=== PATIENT | male | born 1930 | race Caucasian/White ===

== ENCOUNTER 2016-04-04 18:01 | Inpatient (IN) | payer MEDICARE, MEDICAID ==
[~2016-04-04] VITALS: Ht 167.6 cm; Wt 67.4 kg
[~2016-04-04 18:01] MED LIST: ASPI81TA2 PO; ATOR20TA86 PO; DOCU250C91 PO; FURO40 PO; INSNOV SQ; IPRA4AER IH; MIDO5 PO; PANT40TA25 PO; POTA10TA10 PO; SITA50 PO; TAMS0.4C32 PO
[2016-04-04] MEDS ORDERED: FINA5TAB41 PO (18:35)
[2016-04-04] MEDS ORDERED: FURO20 PO (18:35)
[2016-04-04] MEDS ORDERED: CLOP75 PO (18:35)
[2016-04-04] MEDS ORDERED: BICA50TA3 PO (18:35)
[2016-04-04 19:13] LABS: BASOPHILS # (AUTO) 0.03 K/uL (0.00-0.20); BASOPHILS % (AUTO) 0.3 % (0.0-2.0); EOSINOPHILS # (AUTO) 0.04 K/uL (0.00-0.70); EOSINOPHILS % (AUTO) 0.41 % (1.0-6.0); HEMATOCRIT 32.5 % (41-53); HEMOGLOBIN 10.4 g/dL (13.5-17.5); LYMPHOCYTES # (AUTO) 0.8 K/uL (1.0-4.8); LYMPHOCYTES % (AUTO) 8.2 % (22.0-44.0); MEAN CORPUSCULAR HEMOGLOBIN 23.1 pg (26.0-34.0); MEAN CORPUSCULAR HGB CONC 32.1 G/dL (31.0-37.0); MEAN CORPUSCULAR VOLUME 72 fL (80-100); MONOCYTES # (AUTO) 1.2 K/uL (0.1-1.0); NEUTROPHILS % (AUTO) 79.1 % (40.0-70.0); PLATELET COUNT (AUTO) 345 K/uL (150-450); RED BLOOD CELL COUNT(AUTO) 4.52 MIL/uL (4.50-5.90); RED CELL DISTRIBUTION WIDTH 19.1 % (11.5-14.5); WHITE BLOOD COUNT (AUTO) 10.2 K/uL (4.5-11.0)
[2016-04-04 19:26] LABS: ANION GAP 6 mmol/L (8-16); CALCIUM, TOTAL 8.3 mg/dL (8.8-10.5); CARBON DIOXIDE 26 mmol/L (22-29); CHLORIDE 100 mmol/L (98-107); CREATININE 1.24 mg/dL (0.60-1.30); GLOMERULAR FILTR. RATE CALC 55 mL/min (>60); POTASSIUM 3.4 mmol/L (3.5-5.1); SODIUM SERUM 132 mmol/L (136-145); UREA NITROGEN, BLOOD 26 mg/dL (7-18)
[2016-04-04 19:34] LABS: B-TYPE NATRIURETIC PEPTIDE 130 pg/mL (0-100)
[2016-04-04 19:37] LABS: ALANINE AMINOTRANSFERASE 10 U/L (12-78); ALBUMIN 2.6 g/dL (3.4-5.0); ASPARTATE AMINOTRANSFERASE 12 U/L (15-37); BILIRUBIN,TOTAL 0.2 mg/dL (0.1-1.0)
[2016-04-04 19:51] LABS: LACTIC ACID 2.3 mmol/L (0.4-2.0)
[2016-04-04] MEDS ORDERED: 0.9% SODIUM CHLORIDE 10 ML SYRINGE IVP PRN (20:00)
[2016-04-04] MEDS ORDERED: ACETAMINOPHEN 325 MG TABLET PO PRN ×2 (20:00→22:00)
[2016-04-04] MEDS ORDERED: AZITHROMYCIN 500 MG/NS 250 ML IV ONE (20:00)
[2016-04-04] MEDS ORDERED: CefTRIAXone 1 GM/DEXTROSE 50 ML IV ONE (20:00)
[2016-04-04 20:07] LABS: GLUCOSE,POINT OF CARE 62 MG/DL (70-110)
[2016-04-04] MEDS ORDERED: SODIUM CHLORIDE 0.9% 1,000 ML IV ONE (20:30)
[2016-04-04 21:08] LABS: REFLEX LACTIC ACID? YES YES
[2016-04-04] MEDS ORDERED: ALBUTEROL SULFATE 2.5 MG/0.5 ML NEB SOLUTION NEB PRN (22:00)
[2016-04-04] MEDS ORDERED: POTASSIUM CHL 10 MEQ/WATER 50 ML IV PRN (22:00)
[2016-04-04] MEDS ORDERED: DEXTROSE 50%-WATER 25 GM/50 ML SYRINGE IVP PRN (22:00)
[2016-04-04] MEDS ORDERED: MAGNESIUM HYDROXIDE SUSPENSION 30 ML UDCUP PO PRN (22:00)
[2016-04-04] MEDS ORDERED: POTASSIUM CHLORIDE 20 MEQ ER TABLET PO PRN (22:00)
[2016-04-04 22:41] LABS: RBC MORPHOLOGY COMMENT ABNORMAL RBC MORPH
[2016-04-04] MEDS: SIMVASTATIN 20 MG TABLET PO SCH (23:23)
[2016-04-04] MEDS: ASPIRIN 81 MG CHEWABLE TABLET PO SCH (23:23)
[2016-04-04] MEDS: HEPARIN SODIUM,PORCINE 5,000 UNITS/ML VIAL SQ SCH (23:23)
[2016-04-04 23:41] VITALS: BP 106/50
[2016-04-05 04:59] VITALS: BP 110/58
[2016-04-05 06:26] LABS: BASOPHILS % (AUTO) 0.9 % (0.0-2.0); EOSINOPHILS % (AUTO) 2.7 % (1.0-6.0); HEMATOCRIT 29.9 % (41-53); HEMOGLOBIN 9.6 g/dL (13.5-17.5); LYMPHOCYTES # (AUTO) 0.8 K/uL (1.0-4.8); LYMPHOCYTES % (AUTO) 10.3 % (22.0-44.0); MEAN CORPUSCULAR HEMOGLOBIN 23.4 pg (26.0-34.0); MEAN CORPUSCULAR HGB CONC 32.2 G/dL (31.0-37.0); MEAN CORPUSCULAR VOLUME 73 fL (80-100); MONOCYTES # (AUTO) 0.9 K/uL (0.1-1.0); MONOCYTES % (AUTO) 11.3 % (2.0-9.0); NEUTROPHILS % (AUTO) 74.8 % (40.0-70.0); PLATELET COUNT (AUTO) 260 K/uL (150-450); RED BLOOD CELL COUNT(AUTO) 4.12 MIL/uL (4.50-5.90); RED CELL DISTRIBUTION WIDTH 18.5 % (11.5-14.5)
[2016-04-05 06:38] LABS: RBC MORPHOLOGY COMMENT ABNORMAL RBC MORPH
[2016-04-05 06:54] LABS: ANION GAP 6 mmol/L (8-16); CALCIUM, TOTAL 8.1 mg/dL (8.8-10.5); CARBON DIOXIDE 29 mmol/L (22-29); CHLORIDE 107 mmol/L (98-107); CREATININE 0.97 mg/dL (0.60-1.30); GLOMERULAR FILTR. RATE CALC > 60 mL/min (>60); POTASSIUM 3.8 mmol/L (3.5-5.1); SODIUM SERUM 142 mmol/L (136-145); UREA NITROGEN, BLOOD 19 mg/dL (7-18)
[2016-04-05 07:35] VITALS: BP 114/49
[2016-04-05] MEDS: FUROSEMIDE 20 MG/2 ML VIAL IVP SCH (10:07)
[2016-04-05] MEDS: HEPARIN SODIUM,PORCINE 5,000 UNITS/ML VIAL SQ SCH ×3 (10:07→23:57)
[2016-04-05] MEDS: PANTOPRAZOLE SODIUM 40 MG DR TABLET PO SCH (10:08)
[2016-04-05] MEDS: DOCUSATE SODIUM 100 MG CAPSULE PO SCH ×2 (10:08→20:54)
[2016-04-05 12:05] VITALS: BP 105/61
[2016-04-05] MEDS: INSULIN ASPART 100 UNITS/ML SQ PRN ×3 (12:17→20:57)
[2016-04-05 15:51] VITALS: BP 118/46
[2016-04-05 19:56] VITALS: BP 105/78
[2016-04-05 19:56] LABS: GLUCOSE COMMENT 1 Received Meds; GLUCOSE,POINT OF CARE 161 MG/DL (70-110)
[2016-04-05] MEDS ORDERED: AZITHROMYCIN 500 MG/NS 250 ML IV SCH (20:00)
[2016-04-05] MEDS ORDERED: SODIUM CHLORIDE 0.9% 250 ML IV ONE (20:51)
[2016-04-05] MEDS: SIMVASTATIN 20 MG TABLET PO SCH (20:54)
[2016-04-05] MEDS: ASPIRIN 81 MG CHEWABLE TABLET PO SCH (20:54)
[2016-04-06 00:14] VITALS: BP 108/59
[2016-04-06 03:57] VITALS: BP 104/58
[2016-04-06 07:06] LABS: GLUCOSE COMMENT 1 Received Meds; GLUCOSE,POINT OF CARE 244 MG/DL (70-110)
[2016-04-06 07:06] LABS: GLUCOSE COMMENT 1 Received Meds; GLUCOSE,POINT OF CARE 110 MG/DL (70-110)
[2016-04-06 07:06] LABS: GLUCOSE,POINT OF CARE 159 MG/DL (70-110)
[2016-04-06 07:11] LABS: GLUCOSE,POINT OF CARE 133 MG/DL (70-110)
[2016-04-06 07:30] VITALS: BP 103/46
[2016-04-06] MEDS: FUROSEMIDE 20 MG/2 ML VIAL IVP SCH (08:00)
[2016-04-06] MEDS: HEPARIN SODIUM,PORCINE 5,000 UNITS/ML VIAL SQ SCH (09:42)
[2016-04-06] MEDS: PANTOPRAZOLE SODIUM 40 MG DR TABLET PO SCH (09:42)
[2016-04-06] MEDS: DOCUSATE SODIUM 100 MG CAPSULE PO SCH (09:42)
[2016-04-06 10:46] VITALS: BP 113/50
[2016-04-06 11:39] VITALS: BP 96/44
[2016-04-06] MEDS: INSULIN ASPART 100 UNITS/ML SQ PRN (12:44)
[2016-04-06 15:46] VITALS: BP 125/62
[2016-04-18 12:27] LABS: GLUCOSE COMMENT 1 Received Meds; GLUCOSE,POINT OF CARE 197 MG/DL (70-110)
== END 2016-04-06 17:50 | disposition home or self-care (01) | DRG 194 ==
LOC: EMS 18:05 → 5N 20:16
PROVIDERS: ADMIT Internal Medicine; ATTEND Internal Medicine
DX: J18.9 Pneumonia, unspecified organism (principal); G45.9 Transient cerebral ischemic attack, unspecified; E44.0 Moderate protein-calorie malnutrition; I50.30 Unspecified diastolic (congestive) heart failure; Z66 Do not resuscitate; E11.9 Type 2 diabetes mellitus without complications; E87.6 Hypokalemia; E78.5 Hyperlipidemia, unspecified; N40.0 Benign prostatic hyperplasia without lower urinary tract symptoms; I11.0 Hypertensive heart disease with heart failure; I25.10 Atherosclerotic heart disease of native coronary artery without angina pectoris; M19.90 Unspecified osteoarthritis, unspecified site; I69.30 Unspecified sequelae of cerebral infarction; Z79.01 Long term (current) use of anticoagulants; Z79.02 Long term (current) use of antithrombotics/antiplatelets; Z79.4 Long term (current) use of insulin; Z79.82 Long term (current) use of aspirin; Z89.411 Acquired absence of right great toe; Z95.1 Presence of aortocoronary bypass graft; Z68.24 Body mass index [BMI] 24.0-24.9, adult; Z83.3 Family history of diabetes mellitus; Z82.49 Family history of ischemic heart disease and other diseases of the circulatory system; J40 Bronchitis, not specified as acute or chronic
CPT/HCPCS: 70450; 82962; 83605; 87040; 93005; 96365; 96367; 97116; 97162; 97530; 99285; J0456; J1644; J1940; J7050

== ENCOUNTER 2016-04-07 17:42 | Inpatient (IN) | payer MEDICARE, MEDICAID ==
[~2016-04-07] VITALS: Ht 170.2 cm; Wt 67.5 kg
[~2016-04-07 17:42] MED LIST changes: +BICA50TA3 PO; +CLOP75 PO; +FINA5TAB41 PO; +FURO20 PO; -FURO40 PO
[2016-04-07 18:56] LABS: BASOPHILS % (AUTO) 0.7 % (0.0-2.0); EOSINOPHILS % (AUTO) 0 % (1.0-6.0); HEMATOCRIT 31.5 % (41-53); HEMOGLOBIN 10.2 g/dL (13.5-17.5); LYMPHOCYTES # (AUTO) 0.6 K/uL (1.0-4.8); LYMPHOCYTES % (AUTO) 5.1 % (22.0-44.0); MEAN CORPUSCULAR HEMOGLOBIN 23.4 pg (26.0-34.0); MEAN CORPUSCULAR HGB CONC 32.5 G/dL (31.0-37.0); MEAN CORPUSCULAR VOLUME 72 fL (80-100); MONOCYTES # (AUTO) 1.1 K/uL (0.1-1.0); MONOCYTES % (AUTO) 9.3 % (2.0-9.0); NEUTROPHILS # (AUTO) 9.6 K/uL (1.8-7.7); NEUTROPHILS % (AUTO) 84.9 % (40.0-70.0); PLATELET COUNT (AUTO) 297 K/uL (150-450); RED BLOOD CELL COUNT(AUTO) 4.37 MIL/uL (4.50-5.90); RED CELL DISTRIBUTION WIDTH 18.1 % (11.5-14.5); WHITE BLOOD COUNT (AUTO) 11.4 K/uL (4.5-11.0)
[2016-04-07 19:08] LABS: INR 1.1 (0.9-1.1); PROTHROMBIN TIME 11.7 SEC (9.4-11.6)
[2016-04-07 19:17] LABS: ANION GAP 9 mmol/L (8-16); CALCIUM, TOTAL 8.2 mg/dL (8.8-10.5); CARBON DIOXIDE 27 mmol/L (22-29); CHLORIDE 99 mmol/L (98-107); CREATININE 1.28 mg/dL (0.60-1.30); GLOMERULAR FILTR. RATE CALC 53 mL/min (>60); POTASSIUM 3.8 mmol/L (3.5-5.1); SODIUM SERUM 135 mmol/L (136-145); UREA NITROGEN, BLOOD 29 mg/dL (7-18)
[2016-04-07 19:20] LABS: RBC MORPHOLOGY COMMENT ABNORMAL RBC MORPH
[2016-04-07 19:23] LABS: B-TYPE NATRIURETIC PEPTIDE 226 pg/mL (0-100)
[2016-04-07] MEDS ORDERED: 0.9% SODIUM CHLORIDE 5 ML NEB SOLUTION NEB ONE ×2 (19:41→19:42)
[2016-04-07 19:44] LABS: ALANINE AMINOTRANSFERASE 13 U/L (12-78); ALBUMIN 2.5 g/dL (3.4-5.0); ASPARTATE AMINOTRANSFERASE 23 U/L (15-37); BILIRUBIN,TOTAL 0.2 mg/dL (0.1-1.0); CREATINE KINASE MB 0.8 ng/mL (0-5); CREATINE KINASE, TOTAL 173 U/L (39-308)
[2016-04-07] MEDS ORDERED: IPRATROPIUM BROMIDE 0.5 MG/2.5 ML NEB SOLUTION NEB ONE (19:45)
[2016-04-07] MEDS ORDERED: ALBUTEROL SULFATE 5 MG/ML 20 ML NEB SOLN [BULK] NEB ONE (19:45)
[2016-04-07] MEDS ORDERED: ACETAMINOPHEN 325 MG TABLET PO ONE (19:45)
[2016-04-07 22:20] LABS: INFLUENZA TYPE B NEGATIVE FOR TYPE B (NEGATIVE)
[2016-04-07] MEDS ORDERED: ONDANSETRON HCL 4 MG/2 ML VIAL IVP PRN (23:15)
[2016-04-07] MEDS ORDERED: ACETAMINOPHEN 325 MG TABLET PO PRN (23:15)
[2016-04-07] MEDS ORDERED: 0.9% SODIUM CHLORIDE 10 ML SYRINGE IVP PRN (23:15)
[2016-04-07 23:44] VITALS: BP 138/47
[2016-04-08 03:27] LABS: GLUCOSE COMMENT 1 Doctor Notified; GLUCOSE,POINT OF CARE 299 MG/DL (70-110)
[2016-04-08 04:00] VITALS: BP 99/57
[2016-04-08] MEDS ORDERED: ALBUTEROL SULFATE 2.5 MG/0.5 ML NEB SOLUTION NEB PRN (06:00)
[2016-04-08] MEDS ORDERED: DEXTROSE 50%-WATER 25 GM/50 ML SYRINGE IVP PRN (06:00)
[2016-04-08] MEDS ORDERED: ALBUTEROL SULFATE/IPRATROPIUM 100-20 MCG/SPRAY 4 GM INHALER IH SCH (06:00)
[2016-04-08] MEDS ORDERED: IPRATROPIUM BROMIDE 0.5 MG/2.5 ML NEB SOLUTION NEB PRN (06:00)
[2016-04-08] MEDS: INSULIN ASPART 100 UNITS/ML SQ PRN ×4 (06:20→22:14)
[2016-04-08] MEDS ORDERED: MethylPREDNISolone SOD SUCC 125 MG/2 ML VIAL IVP SCH (08:00)
[2016-04-08 08:07] LABS: APPEARANCE,URINE TURBID (CLEAR); GLUCOSE, URINE (UA) 500 mg/dL (NEGATIVE); KETONES,URINE NEGATIVE (NEGATIVE); LEUKOCYTE ESTERASE ,URINE LARGE (NEGATIVE); OCCULT BLOOD,URINE LARGE (NEGATIVE); PH,URINE 5.5 (5.0-8.0); PROTEIN,URINE POS 1+ (NEGATIVE)
[2016-04-08 08:08] VITALS: BP 94/40
[2016-04-08 08:11] LABS: ADD UA MICROSCOPIC YES
[2016-04-08 08:14] LABS: SQUAMOUS EPITHELIAL CELL,UR Few /LPF (None Seen); WBC,URINE 51-100 /HPF (0-5)
[2016-04-08 08:21] LABS: BASOPHILS % (AUTO) 0.2 % (0.0-2.0); EOSINOPHILS % (AUTO) 0.5 % (1.0-6.0); HEMOGLOBIN 9.4 g/dL (13.5-17.5); LYMPHOCYTES # (AUTO) 0.8 K/uL (1.0-4.8); LYMPHOCYTES % (AUTO) 9.2 % (22.0-44.0); MEAN CORPUSCULAR HEMOGLOBIN 22.7 pg (26.0-34.0); MEAN CORPUSCULAR HGB CONC 31.4 G/dL (31.0-37.0); MEAN CORPUSCULAR VOLUME 72 fL (80-100); MONOCYTES # (AUTO) 1.3 K/uL (0.1-1.0); NEUTROPHILS # (AUTO) 6.3 K/uL (1.8-7.7); NEUTROPHILS % (AUTO) 75.1 % (40.0-70.0); PLATELET COUNT (AUTO) 271 K/uL (150-450); RED BLOOD CELL COUNT(AUTO) 4.16 MIL/uL (4.50-5.90); RED CELL DISTRIBUTION WIDTH 18.7 % (11.5-14.5); WHITE BLOOD COUNT (AUTO) 8.5 K/uL (4.5-11.0)
[2016-04-08 08:25] LABS: RBC MORPHOLOGY COMMENT ABNORMAL RBC MORPH
[2016-04-08 08:54] LABS: ALBUMIN 2.3 g/dL (3.4-5.0); BILIRUBIN,TOTAL 0.2 mg/dL (0.1-1.0); CALCIUM, TOTAL 8.1 mg/dL (8.8-10.5); CREATININE 1.2 mg/dL (0.60-1.30); TOTAL PROTEIN, SERUM 6.7 g/dL (6.4-8.2)
[2016-04-08] MEDS ORDERED: POTASSIUM CHLORIDE 10 MEQ ER TABLET PO SCH (09:00)
[2016-04-08] MEDS ORDERED: DOCUSATE SODIUM 250 MG CAPSULE PO SCH (09:00)
[2016-04-08] MEDS ORDERED: PANTOPRAZOLE SODIUM 40 MG DR TABLET PO SCH (09:00)
[2016-04-08] MEDS: ASPIRIN 81 MG CHEWABLE TABLET PO SCH (09:18)
[2016-04-08] MEDS: BICALUTAMIDE 50 MG TABLET PO SCH (09:18)
[2016-04-08] MEDS: ATORVASTATIN CALCIUM 20 MG TABLET PO SCH (09:19)
[2016-04-08] MEDS: CLOPIDOGREL BISULFATE 75 MG TABLET PO SCH (09:19)
[2016-04-08] MEDS: SitaGLIPtin PHOSPHATE 50 MG TABLET PO SCH (09:19)
[2016-04-08] MEDS: FUROSEMIDE 20 MG TABLET PO SCH (09:19)
[2016-04-08] MEDS: FINASTERIDE 5 MG TABLET PO SCH (09:20)
[2016-04-08] MEDS: MIDODRINE HCL 5 MG TABLET PO SCH ×2 (09:20→22:00)
[2016-04-08 11:16] LABS: GLUCOSE COMMENT 1 Received Meds; GLUCOSE,POINT OF CARE 313 MG/DL (70-110)
[2016-04-08 11:35] VITALS: BP 111/53
[2016-04-08 13:17] LABS: GLUCOSE COMMENT 1 Received Meds; GLUCOSE,POINT OF CARE 249 MG/DL (70-110)
[2016-04-08 15:10] VITALS: BP 118/60
[2016-04-08] MEDS ORDERED: POTASSIUM CHL 10 MEQ/WATER 50 ML IV PRN (16:00)
[2016-04-08] MEDS ORDERED: POTASSIUM CHLORIDE 20 MEQ ER TABLET ONE (16:11)
[2016-04-08] MEDS ORDERED: 0.9% SODIUM CHLORIDE 10 ML SYRINGE IVP PRN (16:30)
[2016-04-08] MEDS ORDERED: ACETAMINOPHEN 325 MG TABLET PO PRN (16:30)
[2016-04-08] MEDS ORDERED: MAGNESIUM HYDROXIDE SUSPENSION 30 ML UDCUP PO PRN (16:30)
[2016-04-08] MEDS ORDERED: ONDANSETRON HCL 4 MG/2 ML VIAL IVP PRN (16:30)
[2016-04-08] MEDS ORDERED: OxyCODONE HCL/ACETAMINOPHEN 5-325 MG TABLET PO PRN ×2 (16:30)
[2016-04-08 17:32] LABS: GLUCOSE COMMENT 1 Received Meds; GLUCOSE,POINT OF CARE 270 MG/DL (70-110)
[2016-04-08] MEDS: PANTOPRAZOLE SODIUM 40 MG/VIAL IVP SCH (18:01)
[2016-04-08] MEDS: CefTRIAXone 1 GM/DEXTROSE 50 ML IV SCH (18:19)
[2016-04-08 19:24] VITALS: BP 115/65
[2016-04-08] MEDS: POTASSIUM CHLORIDE 10 MEQ ER TABLET PO SCH (22:00)
[2016-04-08] MEDS: DOCUSATE SODIUM 100 MG CAPSULE PO SCH (22:00)
[2016-04-08] MEDS: TAMSULOSIN HCL 0.4 MG CAPSULE PO SCH (22:00)
[2016-04-08 22:17] LABS: GLUCOSE,POINT OF CARE 273 MG/DL (70-110)
[2016-04-08 23:20] VITALS: BP 106/62
[2016-04-09 04:19] VITALS: BP 110/68
[2016-04-09] MEDS: CefTRIAXone 1 GM/DEXTROSE 50 ML IV SCH ×2 (05:07→17:18)
[2016-04-09 05:17] LABS: GLUCOSE,POINT OF CARE 272 MG/DL (70-110)
[2016-04-09 06:11] LABS: BASOPHILS % (AUTO) 0.1 % (0.0-2.0); EOSINOPHILS % (AUTO) 0.1 % (1.0-6.0); HEMOGLOBIN 10.7 g/dL (13.5-17.5); LYMPHOCYTES # (AUTO) 0.7 K/uL (1.0-4.8); LYMPHOCYTES % (AUTO) 6.7 % (22.0-44.0); MEAN CORPUSCULAR HEMOGLOBIN 22.6 pg (26.0-34.0); MEAN CORPUSCULAR HGB CONC 30.6 G/dL (31.0-37.0); MEAN CORPUSCULAR VOLUME 74 fL (80-100); MONOCYTES # (AUTO) 0.8 K/uL (0.1-1.0); MONOCYTES % (AUTO) 7.9 % (2.0-9.0); NEUTROPHILS # (AUTO) 9.1 K/uL (1.8-7.7); PLATELET COUNT (AUTO) 300 K/uL (150-450); RED BLOOD CELL COUNT(AUTO) 4.74 MIL/uL (4.50-5.90); RED CELL DISTRIBUTION WIDTH 18.7 % (11.5-14.5); WHITE BLOOD COUNT (AUTO) 10.7 K/uL (4.5-11.0)
[2016-04-09 06:26] LABS: ANION GAP 6 mmol/L (8-16); CALCIUM, TOTAL 8.8 mg/dL (8.8-10.5); CARBON DIOXIDE 29 mmol/L (22-29); CHLORIDE 104 mmol/L (98-107); CREATININE 1.06 mg/dL (0.60-1.30); GLOMERULAR FILTR. RATE CALC > 60 mL/min (>60); POTASSIUM 4.8 mmol/L (3.5-5.1); SODIUM SERUM 139 mmol/L (136-145); UREA NITROGEN, BLOOD 21 mg/dL (7-18)
[2016-04-09] MEDS: INSULIN ASPART 100 UNITS/ML SQ PRN ×4 (06:37→20:37)
[2016-04-09 06:56] LABS: NEUTROPHILS % (AUTO) 85.2 % (40.0-70.0)
[2016-04-09 07:15] VITALS: BP 138/69
[2016-04-09] MEDS: DOCUSATE SODIUM 100 MG CAPSULE PO SCH ×2 (08:01→20:41)
[2016-04-09] MEDS: ATORVASTATIN CALCIUM 20 MG TABLET PO SCH (08:01)
[2016-04-09] MEDS: POTASSIUM CHLORIDE 10 MEQ ER TABLET PO SCH ×2 (08:01→20:36)
[2016-04-09] MEDS: PANTOPRAZOLE SODIUM 40 MG/VIAL IVP SCH (08:01)
[2016-04-09] MEDS: FUROSEMIDE 20 MG TABLET PO SCH (08:01)
[2016-04-09] MEDS: CLOPIDOGREL BISULFATE 75 MG TABLET PO SCH (08:01)
[2016-04-09] MEDS: BICALUTAMIDE 50 MG TABLET PO SCH (08:01)
[2016-04-09] MEDS: SitaGLIPtin PHOSPHATE 50 MG TABLET PO SCH (08:02)
[2016-04-09] MEDS: MIDODRINE HCL 5 MG TABLET PO SCH ×2 (08:02→20:37)
[2016-04-09] MEDS: FINASTERIDE 5 MG TABLET PO SCH (08:02)
[2016-04-09] MEDS: ASPIRIN 81 MG CHEWABLE TABLET PO SCH (08:02)
[2016-04-09 11:10] VITALS: BP 116/58
[2016-04-09 15:15] VITALS: BP 118/58
[2016-04-09 16:16] LABS: GLUCOSE,POINT OF CARE 269 MG/DL (70-110)
[2016-04-09 20:08] VITALS: BP 109/56
[2016-04-09] MEDS: TAMSULOSIN HCL 0.4 MG CAPSULE PO SCH (20:37)
[2016-04-09 20:57] LABS: GLUCOSE COMMENT 1 Received Meds; GLUCOSE,POINT OF CARE 222 MG/DL (70-110)
[2016-04-09 20:57] LABS: GLUCOSE COMMENT 1 Received Meds; GLUCOSE,POINT OF CARE 235 MG/DL (70-110)
[2016-04-09] MEDS ORDERED: ZOLPIDEM TARTRATE 10 MG TABLET PO PRN (23:00)
[2016-04-10 03:38] VITALS: BP 102/54
[2016-04-10] MEDS: CefTRIAXone 1 GM/DEXTROSE 50 ML IV SCH (05:10)
[2016-04-10] MEDS: INSULIN ASPART 100 UNITS/ML SQ PRN ×2 (05:18→12:38)
[2016-04-10 06:52] LABS: ANION GAP 6 mmol/L (8-16); CALCIUM, TOTAL 8.7 mg/dL (8.8-10.5); CARBON DIOXIDE 29 mmol/L (22-29); CHLORIDE 101 mmol/L (98-107); CREATININE 0.82 mg/dL (0.60-1.30); GLOMERULAR FILTR. RATE CALC > 60 mL/min (>60); POTASSIUM 4.5 mmol/L (3.5-5.1); SODIUM SERUM 136 mmol/L (136-145); UREA NITROGEN, BLOOD 20 mg/dL (7-18)
[2016-04-10 07:05] LABS: BASOPHILS # (AUTO) 0.04 K/uL (0.00-0.20); BASOPHILS % (AUTO) 0.5 % (0.0-2.0); EOSINOPHILS # (AUTO) 0.16 K/uL (0.00-0.70); EOSINOPHILS % (AUTO) 1.81 % (1.0-6.0); HEMOGLOBIN 11.2 g/dL (13.5-17.5); LYMPHOCYTES # (AUTO) 1.1 K/uL (1.0-4.8); MEAN CORPUSCULAR HEMOGLOBIN 22.4 pg (26.0-34.0); MEAN CORPUSCULAR VOLUME 72 fL (80-100); MONOCYTES # (AUTO) 0.8 K/uL (0.1-1.0); MONOCYTES % (AUTO) 9.5 % (2.0-9.0); NEUTROPHILS # (AUTO) 6.8 K/uL (1.8-7.7); NEUTROPHILS % (AUTO) 76.2 % (40.0-70.0); PLATELET COUNT (AUTO) 312 K/uL (150-450); RED BLOOD CELL COUNT(AUTO) 4.98 MIL/uL (4.50-5.90); RED CELL DISTRIBUTION WIDTH 19.1 % (11.5-14.5); WHITE BLOOD COUNT (AUTO) 8.9 K/uL (4.5-11.0)
[2016-04-10 07:12] LABS: GLUCOSE COMMENT 1 Received Meds; GLUCOSE,POINT OF CARE 206 MG/DL (70-110)
[2016-04-10 07:15] VITALS: BP 112/60
[2016-04-10] MEDS: ATORVASTATIN CALCIUM 20 MG TABLET PO SCH (08:53)
[2016-04-10] MEDS: DOCUSATE SODIUM 100 MG CAPSULE PO SCH (08:53)
[2016-04-10] MEDS: ASPIRIN 81 MG CHEWABLE TABLET PO SCH (08:53)
[2016-04-10] MEDS: PANTOPRAZOLE SODIUM 40 MG/VIAL IVP SCH (08:53)
[2016-04-10] MEDS: NITROFURANTOIN MACROCRYSTAL 50 MG CAPSULE PO SCH ×2 (08:53→11:23)
[2016-04-10] MEDS: SitaGLIPtin PHOSPHATE 50 MG TABLET PO SCH (08:53)
[2016-04-10] MEDS: FINASTERIDE 5 MG TABLET PO SCH (08:53)
[2016-04-10] MEDS: CLOPIDOGREL BISULFATE 75 MG TABLET PO SCH (08:53)
[2016-04-10] MEDS: BICALUTAMIDE 50 MG TABLET PO SCH (08:54)
[2016-04-10] MEDS: POTASSIUM CHLORIDE 10 MEQ ER TABLET PO SCH (09:02)
[2016-04-10 11:21] VITALS: BP 118/75
[2016-04-10] MEDS: FUROSEMIDE 20 MG TABLET PO SCH (11:21)
[2016-04-10 11:52] LABS: GLUCOSE,POINT OF CARE 292 MG/DL (70-110)
[2016-04-10] MEDS ORDERED: NITR50CA PO ×2 (12:35→12:36)
[2016-04-10] MEDS ORDERED: NITR25OR3 PO (12:36)
== END 2016-04-10 14:00 | disposition home or self-care (01) | DRG 190 ==
LOC: EMS 17:44 → 6N 22:46 → UNDOADMIN 23:21 → 6N 04-08 11:09
PROVIDERS: ADMIT Internal Medicine; ATTEND Internal Medicine
DX: J44.1 Chronic obstructive pulmonary disease with (acute) exacerbation (principal); G93.41 Metabolic encephalopathy; E43 Unspecified severe protein-calorie malnutrition; N39.0 Urinary tract infection, site not specified; E11.65 Type 2 diabetes mellitus with hyperglycemia; E78.00 Pure hypercholesterolemia, unspecified; E86.0 Dehydration; F03.90 Unspecified dementia, unspecified severity, without behavioral disturbance, psychotic disturbance, mood disturbance, and anxiety; I50.9 Heart failure, unspecified; D64.9 Anemia, unspecified; I11.0 Hypertensive heart disease with heart failure; E87.6 Hypokalemia; I25.10 Atherosclerotic heart disease of native coronary artery without angina pectoris; N40.0 Benign prostatic hyperplasia without lower urinary tract symptoms; Z86.73 Personal history of transient ischemic attack (TIA), and cerebral infarction without residual deficits; Z79.02 Long term (current) use of antithrombotics/antiplatelets; Z79.4 Long term (current) use of insulin; Z89.411 Acquired absence of right great toe; Z79.82 Long term (current) use of aspirin; Z95.1 Presence of aortocoronary bypass graft; Z68.23 Body mass index [BMI] 23.0-23.9, adult
CPT/HCPCS: 82962; 87081; 87086; 87804; 93005; 94644; 97161; 99285; C9113; J0696; J2930